=== PATIENT | male | born 1990 | race Hispanic/Latino ===

== ENCOUNTER 2021-08-10 14:04 | Emergency (ER) | payer OTHER ==
[~2021-08-10] VITALS: Ht 170.2 cm; Wt 65.0 kg
[2021-08-10] MEDS ORDERED: AMOXICILLIN500 MG PO (16:01)
[2021-08-10 16:22] VITALS: BP 123/75
== END 2021-08-10 17:00 | disposition home or self-care (01) | DRG 153 ==
LOC: ED 14:04
DX: J02.9 Acute pharyngitis, unspecified (principal); Z20.822 Contact with and (suspected) exposure to COVID-19

== ENCOUNTER 2021-12-08 11:01 | Emergency (ER) | payer OTHER ==
[~2021-12-08] VITALS: Ht 170.2 cm; Wt 70.0 kg
[~2021-12-08 11:01] MED LIST: AMOXICILLIN500 MG PO
[2021-12-08 11:17] VITALS: BP 116/72
[2021-12-08 11:30] VITALS: BP 104/63
[2021-12-08 11:45] VITALS: BP 106/63
[2021-12-08 12:00] VITALS: BP 108/68
[2021-12-08 12:15] VITALS: BP 112/70
[2021-12-08 12:26] VITALS: BP 112/70
== END 2021-12-08 12:26 | disposition home or self-care (01) | DRG 563 ==
LOC: ED 11:01
DX: S66.911A Strain of unspecified muscle, fascia and tendon at wrist and hand level, right hand, initial encounter (principal); X50.0XXA Overexertion from strenuous movement or load, initial encounter; Y93.89 Activity, other specified; Y92.89 Other specified places as the place of occurrence of the external cause; Y99.0 Civilian activity done for income or pay